=== PATIENT | male | born 1940 ===

== ENCOUNTER 2022-12-15 06:05 | Day surgery (SDC) | payer MEDICARE, BC ==
[2022-12-13 14:34] VITALS: BMI 22.8
[~2022-12-15 06:05] MED LIST: Fluorouracil 100 MG, Enoxaparin 25 MG, EPINEPHrine 0.3 MG in Ophthalmic Irrigation Solu... IRR SCH
[2022-12-15] MEDS ORDERED: Phenylephrine 2.5% Ophth Soln 5 ML BOT ONE (06:27)
[2022-12-15] MEDS ORDERED: Cyclopentolate 1% Opth Drop 2 ML BOT ONE (06:27)
[2022-12-15] MEDS ORDERED: Midazolam HCl 2 mg/2 ml Vial ONE (06:29)
[2022-12-15] MEDS ORDERED: fentaNYL PF 100 MCG/2 ML SYRINGE ONE (06:29)
[2022-12-15] MEDS ORDERED: Indocyanine Green 25 MG/10 ML VIAL ONE (07:50)
[2022-12-15] MEDS ORDERED: Maxitrol 0.1% Opth Oint 3.5 GM TUBE ONE (07:50)
[2022-12-15] MEDS ORDERED: Triamcinolone 40 MG/ML VIAL ONE (07:50)
[2022-12-15] MEDS ORDERED: Lidocaine 1% PF 5 ML VIAL ONE (07:50)
[2022-12-15] MEDS ORDERED: CEFAZOLIN 1 GM VIAL ONE (07:50)
[2022-12-15] MEDS ORDERED: PROPOFOL 200 MG/20 ML VIAL ONE (07:50)
== END 2022-12-15 09:10 | disposition home or self-care (01) ==
LOC: SDC 06:05
PROVIDERS: ATTEND Ophthalmology Retina Specialist
PROC: 08T43ZZ Resection of Right Vitreous, Percutaneous Approach (ICD-10-PCS; principal; 2022-12-15)
DX: H35.371 Puckering of macula, right eye (principal); Z98.42 Cataract extraction status, left eye; Z98.41 Cataract extraction status, right eye; Z79.02 Long term (current) use of antithrombotics/antiplatelets; Z79.82 Long term (current) use of aspirin; Z79.899 Other long term (current) drug therapy; Z88.5 Allergy status to narcotic agent; Z95.5 Presence of coronary angioplasty implant and graft
CPT/HCPCS: J0171; J0690; J1650; J2250; J2704; J3301; J9190